=== PATIENT | male | born 1935 | race Caucasian/White ===

== ENCOUNTER → 2019-02-01 09:07 | Outpatient (CLI) | payer MEDICARE, BC ==
--- NOTE | 2019-02-04 08:42 | EC ---
PATIENT:MARY BURKS DATE OF SERVICE: 02/01/19 SEX: M MEDICAL RECORD: [id number] DATE OF : [birth year] LOCATION:[facility] AGE OF PATIENT: 84 ADMISSION DATE: 02/01/19 REFERRING PHYSICIAN: INTERPRETING PHYSICIAN: PAN VAN MD ECHOCARDIOGRAM REPORT ECHO CHARGES 4 ECHO COMPLETE Date: 02/01/19 CLINICAL DIAGNOSIS: HTN/MITRAL REGURG/PACEMAKER ECHOCARDIOGRAPHIC MEASUREMENTS (adult normal given) AC root (d.<3.7cm) 4.5 cm LV Septum d (<1.2 cm> 1.3 cm Valve Excursion 1.9 cm LV Septum (systole) 1.5 cm Left Atria (s.<4.0cm> 3.2 cm LVPW d(<1.2cm) 1.3 cm RV (d.<2.3cm) 4.9 cm LVPW (sytole) 1.4 cm LV diastole(<5.6CM) 4.5 cm MV E-F(>70mm/sec) cm LV systole 3.1 cm LVOT Diameter 1.8 cm MV exc.(>10mm) 1.5 cm Est.ejection fraction (50-75%) % DOPPLER: LVIT cm/sec A cm/sec E cm/sec LA cm/sec RVSP 18 mmHg LVOT 114 cm/sec AOP1/2T m/s Asc. Ao 139 cm/sec RVOT cm/sec RA cm/sec PA 146 cm/sec AV Gradient Peak 7.69 mmHg AV Mean 3.47 mmHg AV Area 2.1 cm MV Gradient Peak 1.88 mmHg MV Mean 0.79 mmHg MV Area cm COMMENTS: Presentation Team Member: 2 KSENIA SY Outside Upholsterer: 3 Dr. Live TAPE# PACS Pericardial Effusion N DATE OF SERVICE: Adequate 2D, color flow, spectral Doppler, and M-mode. Borderline LVH. LV internal dimension is normal. Wall motion is normal. EF is greater than or equal to 55%. Aortic valve is tricuspid. No evidence of stenosis by Doppler interrogation. Left atrium is normal. Mitral valve shows no prolapse. Trace MR. Right-sided chambers grossly normal. Trace TR. TRANSINT:[id number] Voice Confirmation ID: [id number] DOCUMENT ID: [id number] ECHOCARDIOGRAM REPORT [id number] MARY BURKS PAN VAN MD at 0842 CC: [id number] DICTATION DATE: 02/02/19 1223 INSPECTOR TOOL: 02/02/19 1229 DEP CLI 02/01/19 [place] [id number] [place] [address]
== END | disposition home or self-care (01) ==
LOC: D.HCCARDIO 09:07
PROVIDERS: ATTEND Internal Medicine Interventional Cardiology
DX: I10 Essential (primary) hypertension (principal)

== ENCOUNTER → 2020-02-18 09:23 | Outpatient (CLI) | payer MEDICARE, BC ==
--- NOTE | ~2020-02-18 | EC ---
PATIENT:MARY BURKS DATE OF SERVICE: 02/18/20 SEX: M MEDICAL RECORD: [id number] DATE OF : [birth year] LOCATION:[facility] AGE OF PATIENT: 85 ADMISSION DATE: 02/18/20 REFERRING PHYSICIAN: INTERPRETING PHYSICIAN: PAN VAN MD ECHOCARDIOGRAM REPORT ECHO CHARGES 4 ECHO COMPLETE Date: 02/18/20 CLINICAL DIAGNOSIS: MITRAL REGURG ECHOCARDIOGRAPHIC MEASUREMENTS (adult normal given) AC root (d.<3.7cm) 4.6 cm LV Septum d (<1.2 cm> 1.2 cm Valve Excursion 1.7 cm LV Septum (systole) 1.4 cm Left Atria (s.<4.0cm> 4.1 cm LVPW d(<1.2cm) 1.4 cm RV (d.<2.3cm) 3.9 cm LVPW (sytole) 1.7 cm LV diastole(<5.6CM) 5.1 cm MV E-F(>70mm/sec) cm LV systole 3.0 cm LVOT Diameter 1.6 cm MV exc.(>10mm) 1.6 cm Est.ejection fraction (50-75%) % DOPPLER: LVIT cm/sec A 74.0 cm/sec E 51.0 cm/sec LA cm/sec RVSP 24 mmHg LVOT 91 cm/sec AOP1/2T m/s Asc. Ao 135 cm/sec RVOT 52 cm/sec RA cm/sec PA 121 cm/sec AV Gradient Peak 7.33 mmHg AV Mean 3.54 mmHg AV Area 1.5 cm MV Gradient Peak 2.73 mmHg MV Mean 1.01 mmHg MV Area cm COMMENTS: Brake Mechanic: 2 KSENIA SY Glove Stitcher: 3 Dr. Live TAPE# PACS Pericardial Effusion N DATE OF SERVICE: Adequate 2D, color-flow imaging, spectral Doppler, and M-Mode Mild LVH. LV internal dimension is normal. Wall motion is normal. EF is greater than or equal to 55%. Aortic valve is tricuspid with good valve excursion. Left atrium is minimally dilated at 4.1 cm. Mitral valve shows no prolapse. Trace MR. Right-sided chambers are grossly normal. Trace TR. Incidental note is made of pacemaker lead in the RV apex. ECHOCARDIOGRAM REPORT [id number] MARY BURKS TRANSINT:[id number] Voice Confirmation ID: [id number] DOCUMENT ID: [id number] PAN VAN MD CC: [id number] DICTATION DATE: 02/19/20 1110 FIRE HOSE CURER: 02/19/20 1605 DEP CLI 02/18/20 [place] [id number] [place] [id number]
== END | disposition home or self-care (01) ==
LOC: D.HCCECHO 09:23
PROVIDERS: ATTEND Internal Medicine Interventional Cardiology
DX: I34.0 Nonrheumatic mitral (valve) insufficiency (principal)